=== PATIENT | male | born 1995 | race Two or more races ===

== ENCOUNTER 2018-05-12 23:16 | Emergency (ER) | payer SELFPAY ==
[~2018-05-12] VITALS: Ht 167.6 cm; Wt 63.5 kg
--- NOTE | 2018-05-12 23:30 | NUR ---
PT BIBSELF. PT STATES "FEELING WEAK. I WANT TO GET CLEAN" LAST METH USE YESTERDAY. PT IS AAOX4. RESPIRATIONS EVEN AND UNLABORED. SKIN WARM AND INTACT. PT IS TACHYCARDIC, AWARE. PT PLACED ON MONITOR. WAITING MD ALEJO
[2018-05-12] MEDS ORDERED: LORAZEPAM 1 MG TABLET ONE (23:53)
[2018-05-13] MEDS ORDERED: LORAZEPAM 1 MG TABLET PO ONE
--- NOTE | 2018-05-13 00:44 | NUR ---
PT TACHYCARDIC, AWARE
--- NOTE | 2018-05-13 00:50 | NUR ---
PER VERBAL MD ORDER, INITIATED 18G RIGHT ARM. 1000ML NS BOLUS X1NOW. IV END TIME 0150
[2018-05-13] MEDS ORDERED: LORAZEPAM INJ 2 MG/ML VIAL ONE ×2 (01:32→02:28)
--- NOTE | 2018-05-13 01:37 | NUR ---
PER VERBAL MD ORDER. ADMINISTERED 1MG ATIVAN IV PUSH X1NOW. 18G RIGHT FOREARM
[2018-05-13] MEDS ORDERED: IV NS 0.9% 1,000 ML BAG IV ONE (02:00)
[2018-05-13] MEDS ORDERED: LORAZEPAM INJ 2 MG/ML VIAL IVP ONE (02:00)
[2018-05-13] MEDS ORDERED: LORAZEPAM INJ 2 MG/ML VIAL IV ONE (02:30)
--- NOTE | 2018-05-13 02:48 | NUR ---
Patient discharged to home in stable condition. Written and verbal after care instructions given. Patient verbalizes understanding of instruction. IV removed. Catheter intact and site benign. Pressure and 4x4 applied to site. No bleeding noted. Pt ambulatory with a steady gait. Pt accompanied with mother
[2018-05-13 03:06] VITALS: BP 117/79
== END 2018-05-13 03:08 | disposition home or self-care (01) ==
LOC: ER 23:17
DX: F15.129 Other stimulant abuse with intoxication, unspecified (principal); F22 Delusional disorders; F41.9 Anxiety disorder, unspecified; F17.200 Nicotine dependence, unspecified, uncomplicated
CPT/HCPCS: 93005; 96374; 96376; 99291; A4606; J2060 ×2; J7030; Z7610